=== PATIENT | male | born 1985 | race Caucasian/White ===

== ENCOUNTER 2018-02-27 13:47 | Outpatient (CLI) | payer OTHER | END 2018-02-27 13:48 | disposition home or self-care (01) | LOC: SC 13:47 | PROVIDERS: ATTEND Internal Medicine Pulmonary Disease | DX: R51 Headache (principal); R06.83 Snoring; G47.10 Hypersomnia, unspecified | CPT/HCPCS: 99203; 99212 ==

== ENCOUNTER 2018-04-17 19:23 | Outpatient (CLI) | payer OTHER | END 2018-04-17 19:24 | disposition home or self-care (01) | LOC: SC 19:23 | PROVIDERS: ATTEND Internal Medicine Pulmonary Disease | DX: G47.33 Obstructive sleep apnea (adult) (pediatric) (principal) | CPT/HCPCS: 95810 ==

== ENCOUNTER 2018-05-14 11:02 | Outpatient (CLI) | payer OTHER | END 2018-05-14 11:03 | disposition home or self-care (01) | LOC: SC 11:02 | PROVIDERS: ATTEND Nurse Practitioner Family | DX: G47.33 Obstructive sleep apnea (adult) (pediatric) (principal) | CPT/HCPCS: 99212; 99214 ==

== ENCOUNTER 2018-08-28 18:07 | Emergency (ER) | payer OTHER ==
[2018-08-28 18:17] VITALS: BP 152/89
[2018-08-28] MEDS ORDERED: valACYclovir 500 MG TABLET PO STA (18:31)
--- NOTE | 2018-08-28 18:38 | ED Physician Documentation ---
History of Present Illness - Stated complaint Stated Complaint: RASH - Chief complaint Chief Complaint: General - Additonal information Additional information: 33-year-old male presents the emergency department with a rash in his chest for the past 2 days. The rashes on the right chest wall and radiates to the back. The patient describes as a burning pain. Symptoms are described as moderate. No other associated symptoms. No triggering factors. No relieving factors. Review of Systems Constitutional: denies: Fever Eyes: denies: Loss of vision, Discharge Ears: denies: Ear pain Skin: reports: Rash, Lesions Immunocompromised: denies: Chemotherapy PD PAST MEDICAL HISTORY - Past Medical History Past Medical History: Yes Cardiovascular: None Respiratory: None Endocrine/Autoimmune: HyPOthyroidism GI: None : None HEENT: None Psych: None Musculoskeletal: None Derm: None - Past Surgical History Past Surgical History: Yes General: Hiatal hernia repair - Present Medications Home Medications: Ambulatory Orders Medication Instructions Recorded Confirmed Levothyroxine Sodium [Synthroid] 175 mcg DAILY 09/01/13 09/01/13 Naproxen 500 mg PO BID PRN #60 tablet 08/28/18 Testosterone Cypionate 200 mg IM 08/28/18 [Depo-Testosterone] Valacyclovir HCl [Valtrex] 1,000 mg PO TID 7 Days tablet 08/28/18 - Allergies Allergies/Adverse Reactions: Allergies Allergy/AdvReac Type Severity Reaction Status Date / Time No Known Drug Allergies Allergy Verified 08/28/18 18:17 - Social History Does the pt smoke?: No Smoking Status: Never smoker Does the pt drink ETOH?: No Does the pt have substance abuse?: No - Immunizations Immunizations are current?: Yes - POLST Patient has POLST: No PD ED PE NORMAL - General General: Alert and oriented X 3, No acute distress - HEENT HEENT: Atraumatic, PERRL, EOMI, Ears normal - Extremities Extremities: No deformity - Neuro Neuro: Alert and oriented X 3, Normal speech - Psych Psych: Normal affect PD ED PE EXPANDED - Derm SKin visual: 1 - rash (Shingles) Results - Vitals Vitals: Vital Signs - 24 hr 08/28/18 18:15 Temperature 36.5 C Heart Rate 78 Respiratory 16 Rate Blood Pressure 152/89 H O2 Saturation 99 Oxygen O2 Source Room air PD MEDICAL DECISION MAKING - ED course ED course: The patient has shingles, the patient's symptoms are within 72 hours and will be started on Valtrex. I recommended that he not be around women or young children until his rash resolves. The patient appears appropriate for discharge and ongoing outpatient management. I discussed warning signs and recommended returning for any worsening or concerns. Departure - Departure Disposition: Home, Self Care Clinical Impression: Shingles rash Qualifiers: Herpes zoster complications: without complications Qualified Code(s): B02.9 - Zoster without complications Condition: Good Instructions: ED Shingles Follow-Up: PATY SAENZ DO [Primary Care Provider] - Within 1 week Prescriptions: Naproxen 500 mg PO BID PRN #60 tablet PRN Reason: Pain Valacyclovir HCl [Valtrex] 1,000 mg PO TID 7 Days tablet Comments: Please return to the emergency department for worsening symptoms or any concerns.
== END 2018-08-28 18:48 | disposition home or self-care (01) ==
LOC: ED 18:07
DX: B02.9 Zoster without complications (principal)
CPT/HCPCS: 99283; A9270